=== PATIENT | female | born 1930 | race Caucasian/White ===

== ENCOUNTER → 2018-04-11 | Emergency (ER) | payer OTHER ==
[~2018-04-11] MED LIST: Z.0.HYDROCHLOROTHIA2 PO; Z.0.LISINOPRIL40 MG PO; Z.0.OMEPRAZOLE40 MG PO; [UNRECOGNIZED DRUG - OTHER] PO
== END | disposition left against medical advice (07) ==
LOC: ER 10:44
DX: R05 Cough (principal)